=== PATIENT | female | born 1970 | race Caucasian/White ===

== ENCOUNTER 2017-06-17 06:43 | Inpatient (IN) | payer BC ==
[2017-06-12 12:17] VITALS: BMI 25.1
[2017-06-17] MEDS ORDERED: LIDOCAINE 1%/EPI 1:100000 (20 ML MULTI DOSE VIAL) ONE (07:14)
[2017-06-17] MEDS ORDERED: BUPIVACAINE HCL/PF 2.5 MG/ML - 30 ML VIAL IJ ONE (07:14)
[2017-06-17] MEDS ORDERED: THROMBIN (BOVINE) 5,000 UNIT VIAL TP ONE (07:14)
[2017-06-17] MEDS ORDERED: LIDOCAINE HCL 1%, 10 MG/ML (20ML VIAL) ONE (07:14)
[2017-06-17] MEDS ORDERED: oxyCODONE HCL 10 MG SUSTAINED ACTING TABLET PO ONE (07:29)
--- NOTE | 2017-06-17 07:30 | HP ---
History & Physical Update - History History: No Change - Physical Physical: No Change - Assessment Assessment: No Change - Plan Plan: No Change
[2017-06-17] MEDS ORDERED: MIDAZOLAM HCL 2 MG/2 ML SINGLE DOSE VIAL ONE ×3 (07:40→10:42)
[2017-06-17] MEDS ORDERED: KETAMINE HCL 500 MG/10 ML VIAL ONE (08:06)
[2017-06-17] MEDS ORDERED: BUPIVACAINE HCL/PF (5 MG/ML) 30 ML VIAL IJ ONE (08:25)
[2017-06-17] MEDS ORDERED: DEXAMETHASONE SOD PHOSPHATE/PF 10 MG/ML SDV ONE (08:25)
[2017-06-17] MEDS ORDERED: DEXAMETHASONE SOD PHOSPHATE 4 MG/1 ML VIAL ONE ×2 (09:33→10:43)
[2017-06-17] MEDS ORDERED: ceFAZolin SODIUM 1 GM VIAL ONE (09:33)
[2017-06-17] MEDS ORDERED: ONDANSETRON 4 MG/2 ML VIAL ONE ×2 (09:33→12:34)
[2017-06-17] MEDS ORDERED: ePHEDrine SULFATE 50 MG/1 ML AMPULE ONE (09:45)
[2017-06-17] MEDS ORDERED: ONDANSETRON 4 MG/2 ML VIAL IVPUSH PRN ×2 (10:11→14:50)
[2017-06-17] MEDS: ACETAMINOPHEN 1000 MG/100 ML VIAL (NON FORMULARY) IVPB ONE (12:15)
--- NOTE | 2017-06-17 12:17 | OP ---
Operative Note - Note: Operative Date: 06/17/17 Pre-Operative Diagnosis: spondylolithesis Operation: posterior lumbar decompression/fusion/instrumentation. Transforaminal lumbar interbody fusion of L4-L5 with allograft and neuromonitoring Surgeon: Munir Dominguez Automatic Glove Turner And Former: Naomy Bright Anesthesiologist/TESTING COORDINATOR: Meredith Pringle Anesthesia: Spinal Estimated Blood Loss (mls): 30 Fluid Volume Replaced (mls): 1,400 Operative Report Dictated: Yes
[2017-06-17] MEDS ORDERED: oxyCODONE HCL 5 MG TABLET PO PRN ×2 (12:19→18:01)
--- NOTE | 2017-06-17 12:19 | SURG ---
Surgery Inspector [employer]ating And Refrigeration Note Inspector Heating And Refrigeration: Naomy Bright PA-C Date of Service: 06/17/17 Diagnosis: spondylolisthesis Procedure: posterior lumbar decompression, fusion/instrumentation. Transformainal lumbar inbercody fusin of L4-L5 with allograft and neuromonitoring I was present for the entirety of the operative procedure. For further detail, please refer to operative report. Visit type - Case Type Case Type: Scheduled Admission - Emergency Emergency Visit: No - New patient This patient is new to me today: Yes Date on this admission: 06/17/17
[2017-06-17] MEDS ORDERED: oxyCODONE HCL 5 MG TABLET ONE (13:23)
[2017-06-17] MEDS: KETOROLAC TROMETHAMINE 30 MG/1 ML VIAL IVPUSH SCH ×2 (14:29→21:17)
[2017-06-17] MEDS: LACTATED RINGERS SOLUTION 1,000 ML IV SCH (14:48)
[2017-06-17] MEDS ORDERED: HYDROmorphone HCL CARPU-JECT 2 MG/1 ML DISP.SYRIN IVPB PRN (14:59)
[2017-06-17] MEDS ORDERED: LACTATED RINGERS SOLUTION 1,000 ML IV SCH (15:00)
[2017-06-17] MEDS ORDERED: HYDROmorphone *PCA* 10MG/50ML DISP.SYRIN PCA SCH (15:15)
[2017-06-17] MEDS: CEFAZOLIN 1 GM/D5W 1 GM/50 ML BAG IVPB SCH (16:26)
[2017-06-17] MEDS: ACETAMINOPHEN 325 MG TABLET (FP) PO SCH (18:22)
[2017-06-17] MEDS ORDERED: NORTRIPTYLINE HCL 25 MG CAPSULE PO SCH (22:00)
[2017-06-18] MEDS: CEFAZOLIN 1 GM/D5W 1 GM/50 ML BAG IVPB SCH (01:00)
[2017-06-18] MEDS: ACETAMINOPHEN 325 MG TABLET (FP) PO SCH ×3 (06:04→11:41)
[2017-06-18] MEDS: KETOROLAC TROMETHAMINE 30 MG/1 ML VIAL IVPUSH SCH ×2 (06:04→13:28)
[2017-06-18] MEDS: ACETAMINOPHEN 1000 MG/100 ML VIAL (NON FORMULARY) IVPB ONE (07:15)
--- NOTE | 2017-06-18 08:32 | DS ---
Physical Exam: SUBJECTIVE: Patient seen and examined OBJECTIVE: She states that her right eye pain has improved. She was oob and ambulated with assistance to the bathroom last pm. Pain improved to her lower ext, some pain at the surgical site. Vital Signs Temperature 98.1 F 06/18/17 05:00 Pulse Rate 94 H 06/18/17 05:00 Respiratory Rate 17 06/18/17 05:00 Blood Pressure 104/62 06/18/17 05:00 O2 Sat by Pulse Oximetry (%) 98 06/18/17 06:30 PHYSICAL EXAM GENERAL: The patient is awake, alert, and fully oriented, in no acute distress. HEENT: b/l eyes with improved swelling. EXTREMITIES: 2+ pulses, warm, well-perfused, no edema. No calf tenderness or swelling noted b/l. 5/5 dorsi/plantar flexion Back: Dressing c/d/i with scant ecchymosis to surrounding skin. No drainage noted on the dressing. LABS CBC, BMP 06/18/17 08:10 06/18/17 08:10 HOSPITAL COURSE: Date of Admission:06/17/17 Date of Discharge: 06/18/17 The patient was admitted to the Med-Surg Unit after an elective repair of their spinal stenosis. Now, s/p L4-l5 lumbar fusion. The day of surgery, the patient ambulated the hallways with assistance. Narcotic and non-narcotic pain management control was achieved with an oral and IV approach. An xray was obtained and confirmed hardware placement at L4-L5, no fractures or dislocations. Lisa-operative IV ABX were administered. DVT prophylaxis was achieved with SCDs and early ambulation. The patient ambulated with Physical Therapy and no services were recommended upon discharge. Narcotic scripts and or muscle relaxants were checked with [facility] DOCUMENTATION COORDINATOR prior to escibe. The discharge instructions and an oral pain management plan were reviewed with the patient. All questions answered. Above plan discussed with Dr. Dominguez and agreed. Minutes to complete discharge: 20 <Naomy Bright - Last Filed: 06/18/17 15:15> Physical Exam: SUBJECTIVE: Patient seen and examined OBJECTIVE: Vital Signs Temperature 98.5 F 06/18/17 09:50 Pulse Rate 99 H 06/18/17 09:50 Respiratory Rate 17 06/18/17 09:50 Blood Pressure 102/66 06/18/17 09:50 O2 Sat by Pulse Oximetry (%) 98 06/18/17 06:30 PHYSICAL EXAM GENERAL: The patient is awake, alert, and fully oriented, in no acute distress. HEAD: Normal with no signs of trauma. EYES: PERRL, extraocular movements intact, sclera anicteric, conjunctiva clear. ENT: Ears normal, nares patent, oropharynx clear without exudates, moist mucous membranes. NECK: Trachea midline, full range of motion, supple. LUNGS: Breath sounds equal, clear to auscultation bilaterally, no wheezes, no crackles, no accessory muscle use. HEART: Regular rate and rhythm, S1, S2 without murmur, rub or gallop. ABDOMEN: Soft, nontender, nondistended, normoactive bowel sounds, no guarding, no rebound, no hepatosplenomegaly, no masses. EXTREMITIES: 2+ pulses, warm, well-perfused, no edema. NEUROLOGICAL: Cranial nerves II through XII grossly intact. Normal speech, gait not observed. PSYCH: Normal mood, normal affect. SKIN: Warm, dry, normal turgor, no rashes or lesions noted. LABS CBC,CMP WBC 17.2 K/mm3 (4.0-10.8) H 06/18/17 08:10 RBC 3.89 M/mm3 (3.60-5.2) 06/18/17 08:10 Hgb 11.6 GM/dl (10.7-15.3) 06/18/17 08:10 Hct 34.1 % (32.4-45.2) 06/18/17 08:10 MCV 87.5 fl (80-96) 06/18/17 08:10 MCH 29.7 pg (25.7-33.7) 06/18/17 08:10 MCHC 34.0 g/dl (32.0-36.0) 06/18/17 08:10 RDW 12.1 % (11.6-15.6) 06/18/17 08:10 Plt Count 218 K/MM3 (134-434) 06/18/17 08:10 MPV 9.1 fl (7.5-11.1) 06/18/17 08:10 Sodium 138 mmol/L (136-145) 06/18/17 08:10 Potassium 3.5 mmol/L (3.5-5.1) 06/18/17 08:10 Chloride 104 mmol/L (98-107) 06/18/17 08:10 Carbon Dioxide 25 mmol/L (22-28) 06/18/17 08:10 Anion Gap 9 (8-16) 06/18/17 08:10 BUN 13 mg/dl (7-18) 06/18/17 08:10 Creatinine 0.7 mg/dl (0.6-1.3) 06/18/17 08:10 Random Glucose 141 mg/dl (74-106) H 06/18/17 08:10 Calcium 8.7 mg/dl (8.4-10.2) 06/18/17 08:10 HOSPITAL COURSE: Date of Admission:06/17/17 Date of Discharge: 06/20/17 The patient was admitted to the Med-Surg Unit after an elective repair of their L4-5 spondylolisthesis. The day of surgery, the patient ambulated the hallways with assistance. Narcotic and non-narcotic pain management control was achieved with an oral and IV approach. POD #1, the surgical drain was removed fully intact and without incident. An xray was obtained and confirmed hardware placement at L4-5, no fractures or dislocations. Lisa-operative IV ABX were administered. DVT prophylaxis was achieved with SCDs and early ambulation. The patient ambulated with Physical Therapy and no services were recommended upon discharge. Narcotic scripts and or muscle relaxants were checked with [place] DOCUMENTATION COORDINATOR prior to escibe. The discharge instructions and an oral pain management plan were reviewed with the patient. All questions answered. Above plan discussed with Dr. Dominguez and agreed. <Munir Dominguez - Last Filed: 06/20/17 11:05> Visit type - Case Type Case Type: Scheduled Admission - Emergency Emergency Visit: No - New patient This patient is new to me today: Yes Date on this admission: 06/18/17 <Naomy Bright - Last Filed: 06/18/17 15:15>
[2017-06-18 08:37] LABS: MCH 29.7 pg (25.7-33.7); MEAN CELL VOLUME 87.5 fl (80-96); MEAN PLT VOLUME 9.1 fl (7.5-11.1); PLATELET COUNT 218 K/MM3 (134-434); RDW 12.1 % (11.6-15.6); WHITE BLOOD COUNT 17.2 K/mm3 (4.0-10.8)
[2017-06-18 08:38] LABS: ANION GAP 9 (8-16); CALCIUM 8.7 mg/dl (8.4-10.2); CO2 25 mmol/L (22-28); CREATININE 0.7 mg/dl (0.6-1.3); GLUCOSE,RANDOM 141 mg/dl (74-106)
[2017-06-18] MEDS ORDERED: PATIENT'S OWN MEDICATION (NON-FORMULARY) (Ubidecarenone [Coq-10] 100 MG) PO SCH (10:00)
[2017-06-18 10:05] VITALS: BP 102/66; PULSE 99; TEMP 98.5
[2017-06-18] MEDS: LACTATED RINGERS SOLUTION 1,000 ML IV SCH (10:20)
[2017-06-18] MEDS ORDERED: oxyCODONE HCL 5 MG TABLET PO ONE (13:30)
--- NOTE | 2017-06-18 14:08 | PN ---
Progress Note (short form) - Note Progress Note: 46F POD1 s/p lumbar fusion under spinal anesthetic with TLIP blocks and dilaudid IV CONTRACT ACCOUNTANT for post operative pain. Pt doing well, reports 0/10 pain. Does not report any anesthetic complications. CONTRACT ACCOUNTANT d/c'd, and pt going home.
== END 2017-06-18 14:15 | disposition home or self-care (01) | DRG 460 ==
LOC: FM/S 06:43
PROVIDERS: ADMIT Orthopaedic Surgery Orthopaedic Surgery of the Spine; ATTEND Orthopaedic Surgery Orthopaedic Surgery of the Spine
PROC: 0SG00AJ Fusion of Lumbar Vertebral Joint with Interbody Fusion Device, Posterior Approach, Anterior Column, Open Approach (ICD-10-PCS; 2017-06-17)
PROC: 0QU00KZ Supplement Lumbar Vertebra with Nonautologous Tissue Substitute, Open Approach (ICD-10-PCS; 2017-06-17)
PROC: 0SB20ZZ Excision of Lumbar Vertebral Disc, Open Approach (ICD-10-PCS; principal; 2017-06-17 08:15)
DX: M43.10 Spondylolisthesis, site unspecified (principal); M48.061 Spinal stenosis, lumbar region without neurogenic claudication; F41.9 Anxiety disorder, unspecified; G89.29 Other chronic pain; H40.9 Unspecified glaucoma
CPT/HCPCS: 36415; 72100-TC; 76001-TC; 80048; 85027; 94010; 94760; 97116-GP; 97162-GP